=== PATIENT | male | born 1965 | race Caucasian/White ===

== ENCOUNTER 2018-11-03 11:18 | Inpatient (IN) | payer OTHER | END 2018-11-08 08:44 | disposition home or self-care (01) | LOC: Y3N 11-04 11:20 → YASAS 11:18 → Y3N 13:22 ==

== ENCOUNTER 2019-08-24 11:35 | Inpatient (IN) | payer BC ==
--- NOTE | 2019-08-24 11:43 | BHS.RME ---
Substance Use & Tx History - Substance Use History Alcohol Substance amount: 1 pint vodka Frequency of use: Daily Substance route: Oral Date of Last Use: 08/23/19 (11 pm) Nicotine Substance amount: 1 pack Frequency of use: Daily Substance route: Smoking Date of Last Use: 08/24/19 Physical/Psych/Mental Status - Behavior General Behavior: Increased activity (restlessness, agitation) Eye Contact: Normal - Cooperativeness Cooperativeness: Cooperative - Thinking Thought Processes: Tight, Logical, Goal Directed - Physical Health Problems Is patient presently having any pain?: No Does patient presently have any injuries (include location): No Does patient currently have a fever: No Is patient : No CIWA Nausea/Vomitin-Mild Nausea/No Vomiting Muscle Tremors: 5 Anxiety: 4-Mod. Anxious/Guarded Agitation: 2 Paroxysmal Sweats: 2 Orientation: 0-Oriented Tacttile Disturbances: 0-None Auditory Disturbances: 0-None Visual Disturbances: 0-None Headache: 2-Mild CIWA-Ar Total Score: 16
--- NOTE | 2019-08-24 12:35 | HP ---
CIWA Score Nausea/Vomitin-Mild Nausea/No Vomiting Muscle Tremors: 5 Anxiety: 4-Mod. Anxious/Guarded Agitation: 2 Paroxysmal Sweats: 2 Orientation: 0-Oriented Tacttile Disturbances: 0-None Auditory Disturbances: 0-None Visual Disturbances: 0-None Headache: 2-Mild CIWA-Ar Total Score: 16 - Admission Criteria OASAS Guidelines: Admission for Medically Managed Detox: Requires at least one of the followin. CIWA greater than 12 2. Seizures within the past 24 hours 3. Delirium tremens within the past 24 hours 4. Hallucinations within the past 24 hours 5. Acute intervention needed for co occurring medical disorder 6. Acute intervention needed for co occurring psychiatric disorder 7. Severe withdrawal that cannot be handled at a lower level of care (continued vomiting, continued diarrhea, abnormal vital signs) requiring intravenous medication and/or fluids 8. Admitting History and Physical - Admission Chief Complaint: Mr. Caruso presents to [facility] requesting detox from alcohol. History of Present Illness: Mr Caruso is a 54 yo male presenting to [facility] for alcohol detox. PMH Depression Social Hx- +Alcol abuse/Nicotine abuse. Former [employer] worker SurgHx- denies Psych: depression Legal: none Substance Use & Tx History - Substance Use History Alcohol Substance amount: 1 pint vodka Frequency of use: Daily Substance route: Oral Date of Last Use: 08/23/19 (11 pm) Nicotine Substance amount: 1 pack Frequency of use: Daily Substance route: Smoking Date of Last Use: 08/24/19 History Source: Patient Limitations to Obtaining History: No Limitations - Past Medical History Psych: Yes: Anxiety, Depression (Diagnosed of depression, currently trazodone) - Smoking History Smoking history: Current some day smoker Have you smoked in the past 12 months: Yes Aproximately how many cigarettes per day: 20 - Alcohol/Substance Use Hx Alcohol Use: Yes Number of Drinks Daily: 10 - Social History ADL: Independent Occupation: unemployed History of Recent Travel: No Admission ROS [facility] - [facility] Allergies/Adverse Reactions: Allergies Allergy/AdvReac Type Severity Reaction Status Date / Time No Known Allergies Allergy Verified 11/03/18 12:04 Exam Limitations: No Limitations - Ebola screening Have you traveled outside of the country in the last 21 days: No Have you been sick,other than usual withdrawal symptoms: No Do you have a fever: No Patient History - Patient Medical History Hx Anemia: No Hx Asthma: No Hx Chronic Obstructive Pulmonary Disease (COPD): No Hx Cancer: No Hx Cardiac Disorders: No Hx Congestive Heart Failure: No Hx Hypertension: No Hx Hypercholesterolemia: No Hx Pacemaker: No HX Cerebrovascular Accident: No Hx Seizures: No Hx Dementia: No Hx Diabetes: No Hx Gastrointestinal Disorders: No Hx Liver Disease: No Hx Genitourinary Disorders: No Hx Sexually Transmitted Disorders: No Hx Renal Disease (ESRD): No Hx Thyroid Disease: No Hx Human Immunodeficiency Virus (HIV): No Hx Hepatitis C: No Hx Depression: Yes Hx Suicide Attempt: No Hx Schizophrenia: No - Patient Surgical History Past Surgical History: No Hx Neurologic Surgery: No Hx Cataract Extraction: No Hx Cardiac Surgery: No Hx Lung Surgery: No Hx Breast Surgery: No Hx Breast Biopsy: No Hx Abdominal Surgery: No Hx Appendectomy: No Hx Cholecystectomy: No Hx Genitourinary Surgery: No Hx Section: No Hx Orthopedic Surgery: No Anesthesia Reaction: No - PPD History Date: 03/27/15 Results: 0 MM - Smoking Cessation Smoking history: Current every day smoker Have you smoked in the past 12 months: Yes Aproximately how many cigarettes per day: 20 Hx Chewing Tobacco Use: No Initiated information on smoking cessation: Yes 'Breaking Loose' booklet given: 08/24/19 Admission Physical Exam [facility] - Physical General Appearance: Yes: Tremorous, Anxious HEENTM: Yes: Hearing grossly Normal, Normocephalic, Normal Voice Respiratory: Yes: Chest Non-Tender, Lungs Clear, Normal Breath Sounds, No Respiratory Distress, No Accessory Muscle Use Neck: Yes: No masses,lesions,Nodules Cardiology: Yes: Regular Rhythm, Regular Rate, S1, S2 Abdominal: Yes: Within Normal Limits Genitourinary: Yes: Within Normal Limits Back: Yes: Within Normal Limits Musculoskeletal: Yes: Within Normal Limits Extremities: Yes: Within Normal Limits Neurological: Yes: Within Normal Limits Integumentary: Yes: Within Normal Limits - Diagnostic (1) Alcohol dependence with uncomplicated withdrawal Current Visit: Yes Status: Acute (2) Nicotine dependence Current Visit: Yes Status: Acute Qualifiers: Nicotine product type: cigarettes Substance use status: in withdrawal Qualified Code(s): F17.213 - Nicotine dependence, cigarettes, with withdrawal Cleared for Admission S - Detox or Rehab [facility] Level of Care: Medically Managed Detox Regimen/Protocol: Librium Breathalyzer - Breathalyzer Breathalyzer: 0.124 Urine Drug Screen - Test Device Lot number: [id number] Expiration date: 10/22/20 - Control Is test valid?: Yes - Results Drug screen NEGATIVE: No Urine drug screen results: BZO-Benzodiazepines Inpatient Rehab Admission - Rehab Decision to Admit Inpatient rehab admission?: No
[2019-08-24] MEDS ORDERED: ACETAMINOPHEN 325 MG TABLET (FP) PO PRN ×2 (12:47)
[2019-08-24] MEDS ORDERED: MENTHOL/PHENOL 1 EACH UD MM PRN (12:47)
[2019-08-24] MEDS ORDERED: MAGNESIUM HYDROX 2400MG/30ML ORAL SUSPENSION 30 ML CUP PO PRN (12:47)
[2019-08-24] MEDS ORDERED: ONDANSETRON *ODT* 4 MG TABLET SL ONE (12:47)
[2019-08-24] MEDS ORDERED: IBUPROFEN 400 MG TABLET (FP) PO PRN (12:47)
[2019-08-24] MEDS ORDERED: BISMUTH SUBSALICYLATE 524 MG/30 ML UD PO PRN (12:47)
[2019-08-24] MEDS ORDERED: MAGNESIUM CITRATE 300 ML BOTTLE PO PRN (12:47)
[2019-08-24] MEDS ORDERED: MAG HYDROX/AL HYDROX/SIMETH 30 ML UNIT-DOSE CUP PO PRN (12:47)
[2019-08-24] MEDS ORDERED: chlordiazePOXIDE HCL 25 MG CAPSULE PO PRN (12:48)
[2019-08-24] MEDS ORDERED: ONDANSETRON *ODT* 4 MG TABLET SL PRN (12:59)
[2019-08-24] MEDS ORDERED: NICOTINE 7 MG/24 HOURS TOPICAL PATCH TD SCH ×2 (13:00)
[2019-08-24 13:20] VITALS: BMI 26.2
[2019-08-24] MEDS ORDERED: TUBERCULIN PPD 5 TU/0.1ML VIAL ID ONE (14:21)
--- NOTE | 2019-08-24 14:26 | CONSULT ---
[facility] Psychiatric Consult - Data Date of interview: 08/24/19 Admission source: Self-referred Identifying data: Mr Caruso is a 54 years old single male, unemployed receiving public assisistance, domiciled living in [place] seeking detox treatment for alcohol Substance Abuse History: Reports history of alcohol use. Refer to addiction counselor's summary for further information Medical History: Unremarkable. Smokes cigaretes 1 PPD Psychiatric History: Patient is known for four previous admissions to this facility. He reports that his first psychiatric contact occured a couple of year s ago while attending an outpatient substance abuse program at [facility]. He said that he was prescribed Trazadone for anxiety and insomnia. Reports that he has been taking that medication since and it is currently prescribed by his primary care physician. Reports 2 previous psychiatric hospitalizations. He could not tell much about them only saying that they were brief and they were for alcohol and depression. During most recent admission to this facility, he saw sign writer hand on 06/13/19 and was prescribed Trazadone 100 mg/hs and Melatonin 10 mg/hs prn for insomnia. Reports that he has been taking both Trazadone and Melatonin prescribed by LILIA loco at [place]. Denies previous suicide attempt. At present, denies depressive symptoms, S/H ideations. However, reports feeling anxious and sleeping poorly Physical/Sexual Abuse/Trauma History: Denies history of abuse as a child or DV relationship as adult Mental Status Exam - Mental Status Exam Alert and Oriented to: Time, Place, Person Cognitive Function: Fair Mood: Depressed, Anxious Affect: Appropriate Patient Behavior: Cooperative Speech Pattern: Clear Voice Loudness: Normal Thought Process: Intact, Goal Oriented Hallucinations: Denies Suicidal Ideation: Denies Homicidal Ideation: Denies Insight/Judgement: Poor Sleep: Poorly Appetite: Fair Muscle strength/Tone: Normal Gait/Station: Normal Psychiatric Findings - Problem List (Vivian 1, 2,3) (1) Alcohol-induced mood disorder Current Visit: Yes Status: Acute (2) Alcohol-induced sleep disorder Current Visit: Yes Status: Acute (3) Alcohol dependence with uncomplicated withdrawal Current Visit: Yes Status: Acute (4) Nicotine dependence Current Visit: Yes Status: Acute Qualifiers: Nicotine product type: cigarettes Substance use status: in withdrawal Qualified Code(s): F17.213 - Nicotine dependence, cigarettes, with withdrawal - Initial Treatment Plan Initial Treatment Plan: 1) Continue Trazadone 100 mg po HS and Melatonin 10 mg po HS prn for insomnia. 2) Continue inpatient detoxification
[2019-08-24] MEDS: PRENATAL VITAMINS W/ FOLIC ACID TABLET (FP) PO SCH (14:28)
[2019-08-24] MEDS: hydrOXYzine PAMOATE 25 MG CAPSULE (FP) PO SCH ×3 (14:28→22:08)
[2019-08-24] MEDS ORDERED: MELATONIN 5 MG TABLETS PO PRN (14:52)
[2019-08-24 16:34] LABS: HEMATOCRIT 34.5 % (35.4-49); HEMOGLOBIN 11.7 GM/dL (11.7-16.9); MCH 34.4 pg (25.7-33.7); MCHC 33.8 g/dl (32.0-35.9); MEAN CELL VOLUME 101.7 fl (80-96); PLATELET COUNT 314 K/MM3 (134-434); RBC 3.39 M/mm3 (4.00-5.60); RDW 15.1 % (11.9-15.9); WHITE BLOOD COUNT 7.2 K/mm3 (4.0-10.0)
[2019-08-24 16:50] LABS: ALBUMIN 3.9 g/dl (3.4-5.0); BILIRUBIN,TOTAL 1.2 mg/dL (0.2-1); BLOOD UREA NITROGEN 19.2 mg/dL (7-18); CALCIUM 8.6 mg/dL (8.5-10.1); CREATININE 0.9 mg/dL (0.55-1.3); POTASSIUM 3.8 mmol/L (3.5-5.1); TOT PROT 7.5 g/dl (6.4-8.2)
[2019-08-24] MEDS: chlordiazePOXIDE HCL 25 MG CAPSULE PO SCH ×2 (18:10→22:08)
[2019-08-24] MEDS: THIAMINE HCL 100 MG TABLET (FP) PO SCH (22:08)
[2019-08-24] MEDS: traZODone HCL 100 MG TABLET (FP) PO SCH (22:08)
[2019-08-24] MEDS: MELATONIN 5 MG TABLETS PO SCH (22:08)
[2019-08-24] MEDS: METHOCARBAMOL 500 MG TABLET PO PRN (22:08)
[2019-08-25] MEDS: chlordiazePOXIDE HCL 25 MG CAPSULE PO SCH ×2 (06:15→10:30)
[2019-08-25] MEDS: hydrOXYzine PAMOATE 25 MG CAPSULE (FP) PO SCH ×5 (06:15→22:20)
[2019-08-25] MEDS: PRENATAL VITAMINS W/ FOLIC ACID TABLET (FP) PO SCH (10:31)
[2019-08-25] MEDS: NICOTINE 7 MG/24 HOURS TOPICAL PATCH TD SCH (10:31)
[2019-08-25] MEDS ORDERED: LORazepam 1 MG TABLET PO PRN (13:34)
--- NOTE | 2019-08-25 13:45 | PN ---
S CIWA - CIWA Score Nausea/Vomitin-Mild Nausea/No Vomiting Muscle Tremors: 4-Moderate,w/Arms Extend Anxiety: 4-Mod. Anxious/Guarded Agitation: 4-Moderately Restless Paroxysmal Sweats: 1-Minimal Palms Moist Orientation: 0-Oriented Tacttile Disturbances: 0-None Auditory Disturbances: 0-None Visual Disturbances: 0-None Headache: 0-None Present CIWA-Ar Total Score: 14 BHS Progress Note (SOAP) Subjective: Pt is a 54 y/o male admitted to detox yesterday to detox for alcohol withdrawal sx. c/o nausea fatigue Objective: 08/25/19 13:40 Vital Signs - 8 hr 08/25/19 08/25/19 06:44 09:22 Temperature 97.8 F 97 F L Pulse Rate 60 82 Respiratory 18 20 Rate Blood Pressure 118/68 125/79 O2 Sat by Pulse 91 L Oximetry (%) Laboratory Tests 08/24/19 08/24/19 08/24/19 14:10 14:10 14:10 WBC 7.2 RBC 3.39 L Hgb 11.7 Hct 34.5 L MCV 101.7 H MCH 34.4 H MCHC 33.8 RDW 15.1 Plt Count 314 MPV 9.0 Sodium 134 L Potassium 3.8 Chloride 98 Carbon Dioxide 25 Anion Gap 11 BUN 19.2 H Creatinine 0.9 Est GFR (CKD-EPI)AfAm 112.62 Est GFR (CKD-EPI)NonAf 97.17 Random Glucose 91 Calcium 8.6 Total Bilirubin 1.2 H AST 1865 H ALT 1838 H Alkaline Phosphatase 121 H Total Protein 7.5 Albumin 3.9 Syphilis Serology Non-reactive Elevated Liver Enzymes and Bilirubin Covid-19 result pending Alert o x 3 nad oob ambulating with steady gait Eyes:icteric Skin: jaundiced Assessment: 08/25/19 13:46 withdrawal sx Elevated liver enzymes Plan: cont detox increase po fluid maintain safety Repeat CMP;INR D/C Librium protocol D/c Tylenol Start Ativan taper as directed. Monitor pt's status
--- NOTE | 2019-08-25 14:27 | PN ---
[facility] Progress Note Note: Vital Signs Temperature 97 F L 08/25/19 09:22 Pulse Rate 82 08/25/19 09:22 Respiratory Rate 20 08/25/19 09:22 Blood Pressure 125/79 08/25/19 09:22 O2 Sat by Pulse Oximetry (%) 91 L 08/25/19 06:44 Laboratory Last Values WBC 7.2 K/mm3 (4.0-10.0) 08/24/19 14:10 RBC 3.39 M/mm3 (4.00-5.60) L 08/24/19 14:10 Hgb 11.7 GM/dL (11.7-16.9) 08/24/19 14:10 Hct 34.5 % (35.4-49) L 08/24/19 14:10 MCV 101.7 fl (80-96) H 08/24/19 14:10 MCH 34.4 pg (25.7-33.7) H 08/24/19 14:10 MCHC 33.8 g/dl (32.0-35.9) 08/24/19 14:10 RDW 15.1 % (11.9-15.9) 08/24/19 14:10 Plt Count 314 K/MM3 (134-434) 08/24/19 14:10 MPV 9.0 fl (7.5-11.1) 08/24/19 14:10 Sodium 134 mmol/L (136-145) L 08/24/19 14:10 Potassium 3.8 mmol/L (3.5-5.1) 08/24/19 14:10 Chloride 98 mmol/L (98-107) 08/24/19 14:10 Carbon Dioxide 25 mmol/L (21-32) 08/24/19 14:10 Anion Gap 11 MMOL/L (8-16) 08/24/19 14:10 BUN 19.2 mg/dL (7-18) H 08/24/19 14:10 Creatinine 0.9 mg/dL (0.55-1.3) 08/24/19 14:10 Est GFR (CKD-EPI)AfAm 112.62 08/24/19 14:10 Est GFR (CKD-EPI)NonAf 97.17 08/24/19 14:10 Random Glucose 91 mg/dL (74-106) 08/24/19 14:10 Calcium 8.6 mg/dL (8.5-10.1) 08/24/19 14:10 Total Bilirubin 1.2 mg/dL (0.2-1) H 08/24/19 14:10 AST 1865 U/L (15-37) H 08/24/19 14:10 ALT 1838 U/L (13-61) H 08/24/19 14:10 Alkaline Phosphatase 121 U/L (45-117) H 08/24/19 14:10 Total Protein 7.5 g/dl (6.4-8.2) 08/24/19 14:10 Albumin 3.9 g/dl (3.4-5.0) 08/24/19 14:10 Syphilis Serology Non-reactive (NONREACTIVE) 08/24/19 14:10 ABNORMAL LABS PATIENT IS A 54 YO MALE WITH HX OF ALCOHOL DEPENDENCE WITH ELEVATED LIVER ENZYMES AND ABNORMAL CBC SECONDARY TO CHRONIC ALCOHOL ABUSE. REPEAT CBC, CMP, AMMONIA, PT/INR INCREASE FLUIDS CONTINUE TO MONITOR
[2019-08-25] MEDS: LORazepam 2 MG TABLET PO SCH ×2 (18:10→22:20)
[2019-08-25 20:53] LABS: PH,URINE 5.5 (5.0-8.0); URINE APPEARANCE TURBID; URINE BILIRUBIN NEGATIVE (NEGATIVE); URINE COLOR DK YELLOW; URINE GLUCOSE (UA) NEGATIVE (NEGATIVE); URINE KETONE NEGATIVE (NEGATIVE); URINE LEUK ESTERASE NEGATIVE (NEGATIVE); URINE NITRITE NEGATIVE (NEGATIVE); URINE PROTEIN NEGATIVE (NEGATIVE)
[2019-08-25] MEDS: METHOCARBAMOL 500 MG TABLET PO PRN (22:20)
[2019-08-25] MEDS: MELATONIN 5 MG TABLETS PO SCH (22:20)
[2019-08-25] MEDS: THIAMINE HCL 100 MG TABLET (FP) PO SCH (22:20)
[2019-08-25] MEDS: traZODone HCL 100 MG TABLET (FP) PO SCH (23:11)
[2019-08-26] MEDS ORDERED: chlordiazePOXIDE HCL 25 MG CAPSULE PO SCH (05:00)
[2019-08-26] MEDS: hydrOXYzine PAMOATE 25 MG CAPSULE (FP) PO SCH ×5 (06:26→22:03)
[2019-08-26] MEDS: LORazepam 2 MG TABLET PO SCH ×4 (06:26→22:03)
[2019-08-26] MEDS: METHOCARBAMOL 500 MG TABLET PO PRN ×2 (10:04→22:04)
[2019-08-26] MEDS: NICOTINE 7 MG/24 HOURS TOPICAL PATCH TD SCH (10:05)
[2019-08-26] MEDS: PRENATAL VITAMINS W/ FOLIC ACID TABLET (FP) PO SCH (10:05)
--- NOTE | 2019-08-26 10:08 | PN ---
S CIWA - CIWA Score Nausea/Vomitin-No Nausea/No Vomiting Muscle Tremors: 2 Anxiety: 3 Agitation: 0-Normal Activity Paroxysmal Sweats: 3 Orientation: 0-Oriented Tacttile Disturbances: 0-None Auditory Disturbances: 0-None Visual Disturbances: 0-None Headache: 2-Mild CIWA-Ar Total Score: 10 BHS Progress Note (SOAP) Subjective: c/o anxiety, shakes, sweats, and headache. Objective: 08/26/19 10:07 Vital Signs 08/26/19 08/26/19 06:09 08:37 Temperature 97.3 F L 97.6 F Pulse Rate 65 69 Respiratory 18 18 Rate Blood Pressure 122/80 129/83 Laboratory Last Values WBC 7.2 K/mm3 (4.0-10.0) 08/24/19 14:10 RBC 3.39 M/mm3 (4.00-5.60) L 08/24/19 14:10 Hgb 11.7 GM/dL (11.7-16.9) 08/24/19 14:10 Hct 34.5 % (35.4-49) L 08/24/19 14:10 MCV 101.7 fl (80-96) H 08/24/19 14:10 MCH 34.4 pg (25.7-33.7) H 08/24/19 14:10 MCHC 33.8 g/dl (32.0-35.9) 08/24/19 14:10 RDW 15.1 % (11.9-15.9) 08/24/19 14:10 Plt Count 314 K/MM3 (134-434) 08/24/19 14:10 MPV 9.0 fl (7.5-11.1) 08/24/19 14:10 Sodium 134 mmol/L (136-145) L 08/24/19 14:10 Potassium 3.8 mmol/L (3.5-5.1) 08/24/19 14:10 Chloride 98 mmol/L (98-107) 08/24/19 14:10 Carbon Dioxide 25 mmol/L (21-32) 08/24/19 14:10 Anion Gap 11 MMOL/L (8-16) 08/24/19 14:10 BUN 19.2 mg/dL (7-18) H 08/24/19 14:10 Creatinine 0.9 mg/dL (0.55-1.3) 08/24/19 14:10 Est GFR (CKD-EPI)AfAm 112.62 08/24/19 14:10 Est GFR (CKD-EPI)NonAf 97.17 08/24/19 14:10 Random Glucose 91 mg/dL (74-106) 08/24/19 14:10 Calcium 8.6 mg/dL (8.5-10.1) 08/24/19 14:10 Total Bilirubin 1.2 mg/dL (0.2-1) H 08/24/19 14:10 AST 1865 U/L (15-37) H 08/24/19 14:10 ALT 1838 U/L (13-61) H 08/24/19 14:10 Alkaline Phosphatase 121 U/L (45-117) H 08/24/19 14:10 Total Protein 7.5 g/dl (6.4-8.2) 08/24/19 14:10 Albumin 3.9 g/dl (3.4-5.0) 08/24/19 14:10 Urine Color Dk yellow 08/25/19 15:57 Urine Appearance Turbid 08/25/19 15:57 Urine pH 5.5 (5.0-8.0) 08/25/19 15:57 Ur Specific [place] 1.019 (1.010-1.035) 08/25/19 15:57 Urine Protein Negative (NEGATIVE) 08/25/19 15:57 Urine Glucose (UA) Negative (NEGATIVE) 08/25/19 15:57 Urine Ketones Negative (NEGATIVE) 08/25/19 15:57 Urine Blood Negative (NEGATIVE) 08/25/19 15:57 Urine Nitrite Negative (NEGATIVE) 08/25/19 15:57 Urine Bilirubin Negative (NEGATIVE) 08/25/19 15:57 Urine Urobilinogen 1.0 mg/dL (0.2-1.0) 08/25/19 15:57 Ur Leukocyte Esterase Negative (NEGATIVE) 08/25/19 15:57 Syphilis Serology Non-reactive (NONREACTIVE) 08/24/19 14:10 COVID-19 (DEB) Not detected (Not Detected) 08/24/19 14:30 Labs noted. Assessment: 08/26/19 10:07 AOX3, in no acute respiratory distress. Full ROM, ambulating in the unit. Withdrawal symptoms. Plan: continue detox.
[2019-08-26 10:10] LABS: EOS % 5.9 % (0-4.5); HEMATOCRIT 30.3 % (35.4-49); LYMPH % 35.6 % (8-40); MCH 33.6 pg (25.7-33.7); MEAN CELL VOLUME 101.9 fl (80-96); MEAN PLT VOLUME 9.2 fl (7.5-11.1); MONO % 12.8 % (3.8-10.2); NEUT % 43.7 % (42.8-82.8); PLATELET COUNT 212 K/MM3 (134-434); RBC 2.97 M/mm3 (4.00-5.60); RDW 15.5 % (11.9-15.9); WHITE BLOOD COUNT 6.5 K/mm3 (4.0-10.0)
[2019-08-26 10:11] LABS: BILIRUBIN,TOTAL 0.8 mg/dL (0.2-1); BLOOD UREA NITROGEN 14.5 mg/dL (7-18); CALCIUM 8.4 mg/dL (8.5-10.1); POTASSIUM 3.5 mmol/L (3.5-5.1); TOT PROT 6.1 g/dl (6.4-8.2)
[2019-08-26 10:12] LABS: INR 0.96 (0.83-1.09); PROTHROMBIN TIME (PATIENT) 11.3 SEC (9.7-13.0)
[2019-08-26] MEDS: THIAMINE HCL 100 MG TABLET (FP) PO SCH (22:03)
[2019-08-26] MEDS: traZODone HCL 100 MG TABLET (FP) PO SCH (22:03)
[2019-08-26] MEDS: MELATONIN 5 MG TABLETS PO SCH (22:17)
[2019-08-27] MEDS ORDERED: chlordiazePOXIDE HCL 10 MG CAPSULE PO PRN
[2019-08-27] MEDS ORDERED: chlordiazePOXIDE HCL 10 MG CAPSULE PO SCH (05:00)
[2019-08-27] MEDS: LORazepam 1 MG TABLET PO SCH ×4 (06:28→22:04)
[2019-08-27] MEDS: hydrOXYzine PAMOATE 25 MG CAPSULE (FP) PO SCH ×5 (06:28→22:03)
[2019-08-27] MEDS: PRENATAL VITAMINS W/ FOLIC ACID TABLET (FP) PO SCH (10:26)
[2019-08-27] MEDS: NICOTINE 7 MG/24 HOURS TOPICAL PATCH TD SCH (10:26)
[2019-08-27] MEDS: METHOCARBAMOL 500 MG TABLET PO PRN ×2 (10:27→22:03)
--- NOTE | 2019-08-27 14:19 | PN ---
S CIWA - CIWA Score Nausea/Vomitin-Mild Nausea/No Vomiting Muscle Tremors: 1-None Visible, but [place] Anxiety: 1-Mildly Anxious Agitation: 1-Slight > Activity Paroxysmal Sweats: 1-Minimal Palms Moist Orientation: 0-Oriented Tacttile Disturbances: 1-Very Mild Itch/Numbness Auditory Disturbances: 0-None Visual Disturbances: 1-Very Mild Sensitivity Headache: 1-Very Mild CIWA-Ar Total Score: 8 BHS Progress Note (SOAP) Subjective: 54 years old male admitted on 08/24/19 for alcohol withdrawal sx management treating with ativan detox regiment alert oriented x 3 mild nausea and loose stool rejects imodium and zofran "I will feel better later" alert oriented x 3 speech clearly coherently mr mariella is aware of his liver condition that enzyme elevation related to alcohol consumption Objective: 08/27/19 14:22 Vital Signs - 24 hr 08/26/19 08/26/19 08/27/19 17:08 20:24 00:30 Temperature 98.2 F 97.7 F Pulse Rate 72 74 Respiratory 17 18 16 Rate Blood Pressure 113/73 110/69 O2 Sat by Pulse 97 Oximetry (%) 08/27/19 08/27/19 08/27/19 03:30 06:26 08:30 Temperature 97.0 F L 97.5 F L Pulse Rate 68 77 Respiratory 16 16 18 Rate Blood Pressure 100/71 115/75 O2 Sat by Pulse Oximetry (%) 08/27/19 12:35 Temperature 97.1 F L Pulse Rate 73 Respiratory 18 Rate Blood Pressure 119/69 O2 Sat by Pulse 98 Oximetry (%) Vital Signs - 24 hr 08/26/19 08/26/19 08/27/19 17:08 20:24 00:30 Temperature 98.2 F 97.7 F Pulse Rate 72 74 Respiratory 17 18 16 Rate Blood Pressure 113/73 110/69 O2 Sat by Pulse 97 Oximetry (%) 08/27/19 08/27/19 08/27/19 03:30 06:26 08:30 Temperature 97.0 F L 97.5 F L Pulse Rate 68 77 Respiratory 16 16 18 Rate Blood Pressure 100/71 115/75 O2 Sat by Pulse Oximetry (%) 08/27/19 12:35 Temperature 97.1 F L Pulse Rate 73 Respiratory 18 Rate Blood Pressure 119/69 O2 Sat by Pulse 98 Oximetry (%) Laboratory Tests 08/24/19 08/24/19 08/24/19 14:10 14:10 14:10 WBC 7.2 RBC 3.39 L Hgb 11.7 Hct 34.5 L MCV 101.7 H MCH 34.4 H MCHC 33.8 RDW 15.1 Plt Count 314 MPV 9.0 Absolute Neuts (auto) Neutrophils % Lymphocytes % Monocytes % Eosinophils % Basophils % Nucleated RBC % PT with INR INR Sodium 134 L Potassium 3.8 Chloride 98 Carbon Dioxide 25 Anion Gap 11 BUN 19.2 H Creatinine 0.9 Est GFR (CKD-EPI)AfAm 112.62 Est GFR (CKD-EPI)NonAf 97.17 Random Glucose 91 Calcium 8.6 Total Bilirubin 1.2 H AST 1865 H ALT 1838 H Alkaline Phosphatase 121 H Ammonia Total Protein 7.5 Albumin 3.9 Urine Color Urine Appearance Urine pH Ur Specific [place] Urine Protein Urine Glucose (UA) Urine Ketones Urine Blood Urine Nitrite Urine Bilirubin Urine Urobilinogen Ur Leukocyte Esterase Syphilis Serology Non-reactive COVID-19 (DEB) 08/24/19 08/25/19 08/26/19 14:30 15:57 07:30 WBC 6.5 RBC 2.97 L Hgb 10.0 L Hct 30.3 L MCV 101.9 H MCH 33.6 MCHC 33.0 RDW 15.5 Plt Count 212 D MPV 9.2 Absolute Neuts (auto) 2.8 Neutrophils % 43.7 Lymphocytes % 35.6 Monocytes % 12.8 H Eosinophils % 5.9 H Basophils % 2.0 Nucleated RBC % 0 PT with INR INR Sodium Potassium Chloride Carbon Dioxide Anion Gap BUN Creatinine Est GFR (CKD-EPI)AfAm Est GFR (CKD-EPI)NonAf Random Glucose Calcium Total Bilirubin AST ALT Alkaline Phosphatase Ammonia Total Protein Albumin Urine Color Dk yellow Urine Appearance Turbid Urine pH 5.5 Ur Specific [place] 1.019 Urine Protein Negative Urine Glucose (UA) Negative Urine Ketones Negative Urine Blood Negative Urine Nitrite Negative Urine Bilirubin Negative Urine Urobilinogen 1.0 Ur Leukocyte Esterase Negative Syphilis Serology COVID-19 (DEB) Not detected 08/26/19 08/26/19 08/26/19 07:30 07:30 07:30 WBC RBC Hgb Hct MCV MCH MCHC RDW Plt Count MPV Absolute Neuts (auto) Neutrophils % Lymphocytes % Monocytes % Eosinophils % Basophils % Nucleated RBC % PT with INR 11.30 INR 0.96 Sodium 140 Potassium 3.5 Chloride 105 Carbon Dioxide 30 Anion Gap 5 L BUN 14.5 Creatinine 1.0 Est GFR (CKD-EPI)AfAm 99.15 Est GFR (CKD-EPI)NonAf 85.55 Random Glucose 99 Calcium 8.4 L Total Bilirubin 0.8 AST 573 H ALT 818 H Alkaline Phosphatase 96 Ammonia 51.00 H Total Protein 6.1 L Albumin 3.0 L Urine Color Urine Appearance Urine pH Ur Specific [place] Urine Protein Urine Glucose (UA) Urine Ketones Urine Blood Urine Nitrite Urine Bilirubin Urine Urobilinogen Ur Leukocyte Esterase Syphilis Serology COVID-19 (DEB) ammonia serum level elevation lactulose initiated bid mild itchy skin no alter mentation Assessment: 08/27/19 14:25 alcohol withdrawal Plan: ativan regiment
[2019-08-27] MEDS: LACTULOSE 20 GM/30 ML UDC (FOR ORAL USE ONLY) PO SCH ×2 (14:50→22:02)
[2019-08-27] MEDS: NICOTINE POLACRILEX 2 MG GUM BUC PRN (19:48)
[2019-08-27] MEDS: THIAMINE HCL 100 MG TABLET (FP) PO SCH (22:03)
[2019-08-27] MEDS: MELATONIN 5 MG TABLETS PO SCH (22:03)
[2019-08-27] MEDS: traZODone HCL 100 MG TABLET (FP) PO SCH (22:03)
[2019-08-28] MEDS ORDERED: LORazepam 0.5 MG TABLET PO PRN
[2019-08-28] MEDS ORDERED: chlordiazePOXIDE HCL 10 MG CAPSULE PO SCH (05:00)
[2019-08-28] MEDS: hydrOXYzine PAMOATE 25 MG CAPSULE (FP) PO SCH ×5 (06:12→22:37)
[2019-08-28] MEDS: LORazepam 0.5 MG TABLET PO SCH ×4 (06:12→22:37)
[2019-08-28] MEDS: LACTULOSE 20 GM/30 ML UDC (FOR ORAL USE ONLY) PO SCH ×2 (10:36→22:36)
[2019-08-28] MEDS: PRENATAL VITAMINS W/ FOLIC ACID TABLET (FP) PO SCH (10:36)
[2019-08-28] MEDS: NICOTINE 7 MG/24 HOURS TOPICAL PATCH TD SCH (10:36)
[2019-08-28] MEDS: METHOCARBAMOL 500 MG TABLET PO PRN ×2 (10:39→22:37)
--- NOTE | 2019-08-28 11:09 | PN ---
S CIWA - CIWA Score Nausea/Vomitin-No Nausea/No Vomiting Muscle Tremors: 3 Anxiety: 3 Agitation: 0-Normal Activity Paroxysmal Sweats: No Perspiration Orientation: 0-Oriented Tacttile Disturbances: 0-None Auditory Disturbances: 0-None Visual Disturbances: 0-None Headache: 0-None Present CIWA-Ar Total Score: 6 BHS Progress Note (SOAP) Subjective: pt reports decreased withdrawal sx but states fatigue and slight anxiety. Objective: 08/28/19 11:06 Vital Signs - 24 hr 08/27/19 08/27/19 08/27/19 12:35 16:45 20:29 Temperature 97.1 F L 98.0 F 98.2 F Pulse Rate 73 68 74 Respiratory 18 19 18 Rate Blood Pressure 119/69 105/75 103/69 O2 Sat by Pulse 98 97 Oximetry (%) 08/28/19 08/28/19 08/28/19 00:30 03:30 06:32 Temperature 97.5 F L Pulse Rate 52 L Respiratory 16 16 18 Rate Blood Pressure 108/71 O2 Sat by Pulse 97 Oximetry (%) 08/28/19 09:30 Temperature 97.6 F Pulse Rate 77 Respiratory 18 Rate Blood Pressure 102/75 O2 Sat by Pulse 98 Oximetry (%) Laboratory Tests 08/24/19 08/24/19 08/24/19 14:10 14:10 14:10 WBC 7.2 RBC 3.39 L Hgb 11.7 Hct 34.5 L MCV 101.7 H MCH 34.4 H MCHC 33.8 RDW 15.1 Plt Count 314 MPV 9.0 Absolute Neuts (auto) Neutrophils % Lymphocytes % Monocytes % Eosinophils % Basophils % Nucleated RBC % PT with INR INR Sodium 134 L Potassium 3.8 Chloride 98 Carbon Dioxide 25 Anion Gap 11 BUN 19.2 H Creatinine 0.9 Est GFR (CKD-EPI)AfAm 112.62 Est GFR (CKD-EPI)NonAf 97.17 Random Glucose 91 Calcium 8.6 Total Bilirubin 1.2 H AST 1865 H ALT 1838 H Alkaline Phosphatase 121 H Ammonia Total Protein 7.5 Albumin 3.9 Urine Color Urine Appearance Urine pH Ur Specific [place] Urine Protein Urine Glucose (UA) Urine Ketones Urine Blood Urine Nitrite Urine Bilirubin Urine Urobilinogen Ur Leukocyte Esterase Syphilis Serology Non-reactive COVID-19 (DEB) 0708/25/19 08/26/19 14:30 15:57 07:30 WBC 6.5 RBC 2.97 L Hgb 10.0 L Hct 30.3 L MCV 101.9 H MCH 33.6 MCHC 33.0 RDW 15.5 Plt Count 212 D MPV 9.2 Absolute Neuts (auto) 2.8 Neutrophils % 43.7 Lymphocytes % 35.6 Monocytes % 12.8 H Eosinophils % 5.9 H Basophils % 2.0 Nucleated RBC % 0 PT with INR INR Sodium Potassium Chloride Carbon Dioxide Anion Gap BUN Creatinine Est GFR (CKD-EPI)AfAm Est GFR (CKD-EPI)NonAf Random Glucose Calcium Total Bilirubin AST ALT Alkaline Phosphatase Ammonia Total Protein Albumin Urine Color Dk yellow Urine Appearance Turbid Urine pH 5.5 Ur Specific [place] 1.019 Urine Protein Negative Urine Glucose (UA) Negative Urine Ketones Negative Urine Blood Negative Urine Nitrite Negative Urine Bilirubin Negative Urine Urobilinogen 1.0 Ur Leukocyte Esterase Negative Syphilis Serology COVID-19 (DEB) Not detected 08/26/19 08/26/19 08/26/19 07:30 07:30 07:30 WBC RBC Hgb Hct MCV MCH MCHC RDW Plt Count MPV Absolute Neuts (auto) Neutrophils % Lymphocytes % Monocytes % Eosinophils % Basophils % Nucleated RBC % PT with INR 11.30 INR 0.96 Sodium 140 Potassium 3.5 Chloride 105 Carbon Dioxide 30 Anion Gap 5 L BUN 14.5 Creatinine 1.0 Est GFR (CKD-EPI)AfAm 99.15 Est GFR (CKD-EPI)NonAf 85.55 Random Glucose 99 Calcium 8.4 L Total Bilirubin 0.8 AST 573 H ALT 818 H Alkaline Phosphatase 96 Ammonia 51.00 H Total Protein 6.1 L Albumin 3.0 L Urine Color Urine Appearance Urine pH Ur Specific [place] Urine Protein Urine Glucose (UA) Urine Ketones Urine Blood Urine Nitrite Urine Bilirubin Urine Urobilinogen Ur Leukocyte Esterase Syphilis Serology COVID-19 (DEB) covid-19 not detected ast/alt grossly improved eyes:slightly icteric skin:jaundice improving -increased pinkish hue to skin oob ambulating with steady gait ammonia level 51.00 on 08/26/19 H/H= 10/30.3 alert o x 3 nad oob ambulating with steady gait Assessment: 08/28/19 11:07 alcohol withdrawal sx Hyperammonemia elevated transaminase enzymes-Transaminitis ?fatty liver dz Obesity Anemia Plan: cont detox increase po fluids maintain safety Repeat CMP,CBC,[place] level feosol 325 mg po bid D/w Pt abnormal lab results and instructed to follow up with his PCP for medical management of condition.
[2019-08-28 14:51] LABS: HEMOGLOBIN 10.6 GM/dL (11.7-16.9); MCH 33.9 pg (25.7-33.7); MCHC 32.9 g/dl (32.0-35.9); MEAN PLT VOLUME 9.2 fl (7.5-11.1); PLATELET COUNT 220 K/MM3 (134-434); RBC 3.11 M/mm3 (4.00-5.60); RDW 15.8 % (11.9-15.9); WHITE BLOOD COUNT 7.2 K/mm3 (4.0-10.0)
[2019-08-28 15:13] LABS: ALBUMIN 3.3 g/dl (3.4-5.0); BILIRUBIN,TOTAL 0.4 mg/dL (0.2-1); BLOOD UREA NITROGEN 7.8 mg/dL (7-18); CALCIUM 8.8 mg/dL (8.5-10.1); CREATININE 0.9 mg/dL (0.55-1.3); POTASSIUM 3.7 mmol/L (3.5-5.1); TOT PROT 6.5 g/dl (6.4-8.2)
[2019-08-28] MEDS: NICOTINE POLACRILEX 2 MG GUM BUC PRN (16:34)
[2019-08-28] MEDS: FERROUS SO4 325 MG TABLET (FP) PO SCH (17:40)
[2019-08-28] MEDS: MELATONIN 5 MG TABLETS PO SCH (22:36)
[2019-08-28] MEDS: traZODone HCL 100 MG TABLET (FP) PO SCH (22:37)
[2019-08-28] MEDS: THIAMINE HCL 100 MG TABLET (FP) PO SCH (22:37)
[2019-08-29] MEDS ORDERED: chlordiazePOXIDE HCL 10 MG CAPSULE PO ONE (05:00)
[2019-08-29] MEDS ORDERED: LORazepam 0.5 MG TABLET PO ONE (05:00)
[2019-08-29] MEDS: hydrOXYzine PAMOATE 25 MG CAPSULE (FP) PO SCH ×2 (06:19→10:07)
[2019-08-29 06:53] VITALS: BP 126/84; PULSE 61; TEMP 98.2
[2019-08-29] MEDS: FERROUS SO4 325 MG TABLET (FP) PO SCH (07:05)
--- NOTE | 2019-08-29 09:57 | DS ---
[facility] Detox Discharge Summary Admission Date: 08/24/19 Discharge Date: 08/29/19 - History Present History: Alcohol Dependence, Cannabis Dependence, Cocaine Dependence Additional Comments: Pt reports he has primary care at [facility] with Dr. Man Johnson and will be following up for medical management of comorbid condition. Pertinent Past History: Mood Disorder - Physical Exam Results Vital Signs: Vital Signs Temperature 98.2 F 08/29/19 06:17 Pulse Rate 61 08/29/19 06:17 Respiratory Rate 16 08/29/19 06:17 Blood Pressure 126/84 08/29/19 06:17 O2 Sat by Pulse Oximetry (%) 96 08/29/19 06:17 Alert o x 3 nad oob ambulating with steady gait cardiac:s1 s2,rrr lungs:ctab abdomen:soft,+bs,nt,nd,no hepatomegaly extremities:no edema,skin intact Pertinent Admission Physical Exam Findings: Laboratory Tests 08/24/19 08/24/19 08/24/19 14:10 14:10 14:10 WBC 7.2 RBC 3.39 L Hgb 11.7 Hct 34.5 L MCV 101.7 H MCH 34.4 H MCHC 33.8 RDW 15.1 Plt Count 314 MPV 9.0 Absolute Neuts (auto) Neutrophils % Lymphocytes % Monocytes % Eosinophils % Basophils % Nucleated RBC % PT with INR INR Sodium 134 L Potassium 3.8 Chloride 98 Carbon Dioxide 25 Anion Gap 11 BUN 19.2 H Creatinine 0.9 Est GFR (CKD-EPI)AfAm 112.62 Est GFR (CKD-EPI)NonAf 97.17 Random Glucose 91 Calcium 8.6 Total Bilirubin 1.2 H AST 1865 H ALT 1838 H Alkaline Phosphatase 121 H Ammonia Total Protein 7.5 Albumin 3.9 Urine Color Urine Appearance Urine pH Ur Specific [place] Urine Protein Urine Glucose (UA) Urine Ketones Urine Blood Urine Nitrite Urine Bilirubin Urine Urobilinogen Ur Leukocyte Esterase Syphilis Serology Non-reactive COVID-19 (DEB) 08/24/19 08/25/19 08/26/19 14:30 15:57 07:30 WBC 6.5 RBC 2.97 L Hgb 10.0 L Hct 30.3 L MCV 101.9 H MCH 33.6 MCHC 33.0 RDW 15.5 Plt Count 212 D MPV 9.2 Absolute Neuts (auto) 2.8 Neutrophils % 43.7 Lymphocytes % 35.6 Monocytes % 12.8 H Eosinophils % 5.9 H Basophils % 2.0 Nucleated RBC % 0 PT with INR INR Sodium Potassium Chloride Carbon Dioxide Anion Gap BUN Creatinine Est GFR (CKD-EPI)AfAm Est GFR (CKD-EPI)NonAf Random Glucose Calcium Total Bilirubin AST ALT Alkaline Phosphatase Ammonia Total Protein Albumin Urine Color Dk yellow Urine Appearance Turbid Urine pH 5.5 Ur Specific [place] 1.019 Urine Protein Negative Urine Glucose (UA) Negative Urine Ketones Negative Urine Blood Negative Urine Nitrite Negative Urine Bilirubin Negative Urine Urobilinogen 1.0 Ur Leukocyte Esterase Negative Syphilis Serology COVID-19 (DEB) Not detected 08/26/19 08/26/19 08/26/19 07:30 07:30 07:30 WBC RBC Hgb Hct MCV MCH MCHC RDW Plt Count MPV Absolute Neuts (auto) Neutrophils % Lymphocytes % Monocytes % Eosinophils % Basophils % Nucleated RBC % PT with INR 11.30 INR 0.96 Sodium 140 Potassium 3.5 Chloride 105 Carbon Dioxide 30 Anion Gap 5 L BUN 14.5 Creatinine 1.0 Est GFR (CKD-EPI)AfAm 99.15 Est GFR (CKD-EPI)NonAf 85.55 Random Glucose 99 Calcium 8.4 L Total Bilirubin 0.8 AST 573 H ALT 818 H Alkaline Phosphatase 96 Ammonia 51.00 H Total Protein 6.1 L Albumin 3.0 L Urine Color Urine Appearance Urine pH Ur Specific [place] Urine Protein Urine Glucose (UA) Urine Ketones Urine Blood Urine Nitrite Urine Bilirubin Urine Urobilinogen Ur Leukocyte Esterase Syphilis Serology COVID-19 (DEB) 08/28/19 08/28/19 08/28/19 10:07 10:07 10:07 WBC 7.2 RBC 3.11 L Hgb 10.6 L Hct 32.0 L MCV 103.0 H MCH 33.9 H MCHC 32.9 RDW 15.8 Plt Count 220 MPV 9.2 Absolute Neuts (auto) Neutrophils % Lymphocytes % Monocytes % Eosinophils % Basophils % Nucleated RBC % PT with INR INR Sodium 140 Potassium 3.7 Chloride 105 Carbon Dioxide 27 Anion Gap 7 L BUN 7.8 Creatinine 0.9 Est GFR (CKD-EPI)AfAm 112.62 Est GFR (CKD-EPI)NonAf 97.17 Random Glucose 90 Calcium 8.8 Total Bilirubin 0.4 AST 176 H ALT 460 H Alkaline Phosphatase 88 Ammonia 122.80 H Total Protein 6.5 Albumin 3.3 L Urine Color Urine Appearance Urine pH Ur Specific [place] Urine Protein Urine Glucose (UA) Urine Ketones Urine Blood Urine Nitrite Urine Bilirubin Urine Urobilinogen Ur Leukocyte Esterase Syphilis Serology COVID-19 (DEB) Labs noted as above and discussed with patient. Discussed results with Dr. Hernandez at [facility] ER and pt denies any n/v fever, abdominal pain or other discomfort for emergency care at this time. Copies of lab report given to patient to follow up with his PCP/GI specialty at [facility] clinic for medical management. Pt was instructed to go to the nearest ER if experiencing any unusual symptoms. - Treatment Hospital Course: Detox Protocol Followed, Detoxed Safely, Responded well (Medically stable for discharge), Discharged Condition Good, Rehab Referral Accepted Patient has Accepted a Rehab Referral to: [facility] CD /Medical - Medication Discharge Medications: Ambulatory Orders traZODone HCL [Trazodone HCl] 100 mg PO HS 11/03/18 Ferrous Sulfate [Feosol] 325 mg PO BIDWM #14 ud 08/29/19 Lactulose (Oral Use) [Cephulac -] 20 gm PO BID 14 Days #1 [facility] [place] 08/29/19 - Diagnosis (1) Alcohol dependence with uncomplicated withdrawal Current Visit: Yes Status: Acute (2) Anemia Current Visit: Yes Status: Acute Qualifiers: Anemia type: unspecified type Qualified Code(s): D64.9 - Anemia, unspecified (3) Elevated transaminase level Current Visit: Yes Status: Acute (4) Hyperammonemia Current Visit: Yes Status: Acute (5) Nicotine dependence Current Visit: Yes Status: Acute Qualifiers: Nicotine product type: cigarettes Substance use status: in withdrawal Qualified Code(s): F17.213 - Nicotine dependence, cigarettes, with withdrawal (6) Cannabis dependence, uncomplicated Current Visit: Yes Status: Acute (7) Cocaine dependence, uncomplicated Current Visit: Yes Status: Acute (8) Insomnia Current Visit: Yes Status: Chronic (9) Alcohol-induced sleep disorder Current Visit: Yes Status: Acute - AMA Did Patient Leave Against Medical Advice: No
[2019-08-29] MEDS: LACTULOSE 20 GM/30 ML UDC (FOR ORAL USE ONLY) PO SCH (10:07)
[2019-08-29] MEDS: PRENATAL VITAMINS W/ FOLIC ACID TABLET (FP) PO SCH (10:07)
[2019-08-29] MEDS: NICOTINE 7 MG/24 HOURS TOPICAL PATCH TD SCH (10:07)
== END 2019-08-29 09:59 | disposition home or self-care (01) | DRG 774 ==
LOC: YASAS 11:35 → Y5N DETOX 13:13
PROVIDERS: ADMIT Allergy & Immunology; ATTEND Allergy & Immunology
PROC: HZ2ZZZZ Detoxification Services for Substance Abuse Treatment (ICD-10-PCS; principal; 2019-08-24)
DX: F10.230 Alcohol dependence with withdrawal, uncomplicated (principal); F14.20 Cocaine dependence, uncomplicated; F12.20 Cannabis dependence, uncomplicated; F17.210 Nicotine dependence, cigarettes, uncomplicated; F10.24 Alcohol dependence with alcohol-induced mood disorder; F10.282 Alcohol dependence with alcohol-induced sleep disorder; F39 Unspecified mood [affective] disorder; F32.9 Major depressive disorder, single episode, unspecified; E72.20 Disorder of urea cycle metabolism, unspecified; R17 Unspecified jaundice; D64.9 Anemia, unspecified; R74.0 Nonspecific elevation of levels of transaminase and lactic acid dehydrogenase [LDH]; G47.00 Insomnia, unspecified; L29.8 Other pruritus
CPT/HCPCS: 36415; 80053; 81003; 82140; 85025; 85027; 85610; 86780; Q0162; U0003